=== PATIENT | female | born 1985 | race Caucasian/White ===

== ENCOUNTER 2020-07-10 06:12 | Emergency (ER) | payer MEDICAID, SELFPAY ==
[~2020-07-10] VITALS: Ht 172.7 cm; Wt 68.9 kg
[2020-07-10 06:12] VITALS: BP_SYST 133
[2020-07-10 07:04] LABS: BASOPHILS % (AUTO) 0.7 % (0.0-2.0); EOSINOPHILS # (AUTO) 0.1 K/uL (0.0-0.4); HEMOGLOBIN 14.3 g/dL (12.0-16.0); LYMPHOCYTES # (AUTO) 1.9 K/uL (1.0-5.5); LYMPHOCYTES % (AUTO) 26.2 % (20.5-51.5); MEAN CORPUSCULAR HEMOGLOBIN 30 pg (27-31); MEAN CORPUSCULAR HGB CONC 34 % (32-36); MEAN CORPUSCULAR VOLUME 89 fL (79.0-98.0); MONOCYTES # (AUTO) 0.5 K/uL (0.0-1.0); MONOCYTES % (AUTO) 6.4 % (1.7-9.3); NEUTROPHILS # (AUTO) 4.7 K/uL (1.8-7.7); NEUTROPHILS % (AUTO) 65.7 % (40.0-70.0); PLATELET COUNT (AUTO) 279 K/uL (130-430); RED BLOOD CELL COUNT(AUTO) 4.72 MIL/uL (4.2-6.2); RED CELL DISTRIBUTION WIDTH 13.8 % (9.0-15.0); WHITE BLOOD COUNT (AUTO) 7.1 K/uL (4.8-10.8)
[2020-07-10 07:05] LABS: SODIUM SERUM 146 mmol/L (136-145)
[2020-07-10 07:06] LABS: ANION GAP 14 (5-15); CALCIUM 8.6 mg/dL (8.4-11.0); CHLORIDE 110 mmol/L (98-107); CREATININE 0.63 mg/dL (0.55-1.30); GFR AFRICAN AMERICAN 137 mL/min (>90); GLUCOSE 110 mg/dL (70-99); POTASSIUM 3.2 mmol/L (3.5-5.1); UREA NITROGEN, BLOOD 5 mg/dL (8-21)
[2020-07-10 07:21] LABS: ASPARTATE AMINOTRANSFERASE 20 U/L (10-37)
[2020-07-10 07:22] LABS: ACETAMINOPHEN < 1 ug/mL (1-30); ALANINE AMINOTRANSFERASE 26 U/L (12-78); ALBUMIN 4.2 g/dL (3.4-4.8); ALCOHOL, BLOOD 210 mg/dL (<10); HCG,QUANTITATIVE 2 mIU/ML (0-6)
[2020-07-10 07:23] LABS: TOTAL BILIRUBIN 0.1 mg/dL (0.0-1.0)
[2020-07-10] MEDS ORDERED: NACL 0.9% 1,000 ML IV ONE (08:00)
[2020-07-10 11:43] VITALS: BP_SYST 130
== END 2020-07-10 11:43 ==
LOC: SED 06:12
DX: T40.422A Poisoning by tramadol, intentional self-harm, initial encounter (principal); Z88.6 Allergy status to analgesic agent; Z20.828 Contact with and (suspected) exposure to other viral communicable diseases; Y92.89 Other specified places as the place of occurrence of the external cause
CPT/HCPCS: 36415; 80053; 84702-TC; 85025; 96360; 99285; G0480; G0481; G0482; J7030

== ENCOUNTER 2023-09-23 20:23 | Emergency (ER) | payer MEDICAID ==
[~2023-09-23] VITALS: Ht 172.7 cm; Wt 59.0 kg
[2023-09-23 20:25] VITALS: BP_SYST 136; PULSE 90; RESP 16; TEMP 97.6; O2SAT 98
[2023-09-23 21:09] LABS: BASOPHILS % (AUTO) 0.6 % (0.0-2.0); EOSINOPHILS # (AUTO) 0.1 K/uL (0.0-0.4); EOSINOPHILS % (AUTO) 1.9 % (0.0-4.0); HEMATOCRIT 34.5 % (36-48); HEMOGLOBIN 11.4 g/dL (12.0-16.0); LYMPHOCYTES # (AUTO) 1.3 K/uL (1.0-5.5); LYMPHOCYTES % (AUTO) 25.7 % (20.5-51.5); MEAN CORPUSCULAR HEMOGLOBIN 27 pg (27-31); MEAN CORPUSCULAR HGB CONC 33 % (32-36); MEAN CORPUSCULAR VOLUME 82 fL (79.0-98.0); MONOCYTES # (AUTO) 0.5 K/uL (0.0-1.0); NEUTROPHILS # (AUTO) 3.1 K/uL (1.8-7.7); NEUTROPHILS % (AUTO) 61.8 % (40.0-70.0); PLATELET COUNT (AUTO) 242 K/uL (130-430); RED BLOOD CELL COUNT(AUTO) 4.19 MIL/uL (4.2-6.2); RED CELL DISTRIBUTION WIDTH 16.2 % (9.0-15.0)
[2023-09-23 21:32] LABS: ANION GAP 8 (5-15); CALCIUM 8.8 mg/dL (8.4-11.0); CARBON DIOXIDE 26 mmol/L (23-29); CHLORIDE 106 mmol/L (98-107); CREATININE 0.69 mg/dL (0.55-1.30); GFR AFRICAN AMERICAN 121 mL/min (>90); GFR NON AFRICAN-AMERICAN 100 mL/min (>90); GLUCOSE 100 mg/dL (74-106); SODIUM SERUM 140 mmol/L (136-145); UREA NITROGEN, BLOOD 7 mg/dL (8-21)
[2023-09-23 21:38] LABS: POTASSIUM 2.9 mmol/L (3.5-5.1)
[2023-09-23] MEDS ORDERED: MORPHINE 4 MG INJ. 4 MG/ML VIAL IVP ONE (23:30)
[2023-09-23] MEDS ORDERED: NITROGLYCERIN 1 INCH (GM) OINT. TP ONE (23:30)
[2023-09-23] MEDS ORDERED: POTASSIUM CHLORIDE 20 MEQ/PKT PACKET PO ONE (23:45)
[2023-09-24 01:15] LABS: PROTHROMBIN TIME 9.9 SECS (9.5-12.5)
[2023-09-24 01:32] LABS: ALANINE AMINOTRANSFERASE 23 U/L (12-78); ALBUMIN 3.4 g/dL (3.4-4.8); ASPARTATE AMINOTRANSFERASE 20 U/L (10-37); BILIRUBIN,DIRECT 0.1 mg/dL (0.0-0.3); TOTAL BILIRUBIN 0.2 mg/dL (0.0-1.0); TOTAL PROTEIN, SERUM 7.6 g/dL (6.4-8.3)
[2023-09-24] MEDS ORDERED: ONDANSETRON HCL 4 MG/2 ML VIAL IVP PRN (07:45)
[2023-09-24] MEDS ORDERED: NITROGLYCERIN 0.4 MG TAB.SUBL SL PRN (07:45)
[2023-09-24] MEDS ORDERED: HYDROcodone/ACETAMIN 5-325 MG TAB (NORCO/ VICODIN) PO PRN (07:45)
[2023-09-24 09:01] LABS: BILIRUBIN,URINE NEGATIVE (NEGATIVE); CLARITY/URINE CLEAR (CLEAR); COLOR,URINE YELLOW (YELLOW); GLUCOSE,URINE NEGATIVE (NEGATIVE); KETONES,URINE NEGATIVE (NEGATIVE); LEUKOCYTE ESTERASE ,URINE NEGATIVE (NEGATIVE); NITRITE, URINE NEGATIVE (NEGATIVE); PROTEIN URINE NEGATIVE (NEGATIVE); UROBILINOGEN,URINE 0.2 (0.2-1.0)
[2023-09-24 09:23] LABS: BARBITURATE, URINE NEGATIVE (NEG <=200); BENZODIAZEPINE, URINE NEGATIVE (NEG <=150); CANNABINOID, URINE NEGATIVE (NEG <=50); COCAINE, URINE NEGATIVE (NEG <=150); METHAMPHETAMINES SCREEN,URINE NEGATIVE (NEG <=500); OPIATE, URINE POSITIVE (NEG <=100); PHENCYCLIDINE SCREEN,URINE NEGATIVE (NEG <=25); URINE AMPHETAMINE NEGATIVE (NEG <=500); URINE METHADONE NEGATIVE (NEG <=200); URINE OXYCODONE SCREEN NEGATIVE (NEG <=100)
[2023-09-24 09:24] LABS: UR TRICYCLIC ANTIDEPRESSANTS NEGATIVE (NEG <=300)
[2023-09-24 09:36] LABS: BASOPHILS % (AUTO) 0.7 % (0.0-2.0); EOSINOPHILS # (AUTO) 0.1 K/uL (0.0-0.4); EOSINOPHILS % (AUTO) 3.7 % (0.0-4.0); HEMOGLOBIN 10.3 g/dL (12.0-16.0); LYMPHOCYTES # (AUTO) 1.8 K/uL (1.0-5.5); LYMPHOCYTES % (AUTO) 46.7 % (20.5-51.5); MEAN CORPUSCULAR HEMOGLOBIN 27 pg (27-31); MEAN CORPUSCULAR HGB CONC 32 % (32-36); MEAN CORPUSCULAR VOLUME 83 fL (79.0-98.0); MONOCYTES # (AUTO) 0.5 K/uL (0.0-1.0); MONOCYTES % (AUTO) 13.1 % (1.7-9.3); NEUTROPHILS # (AUTO) 1.4 K/uL (1.8-7.7); NEUTROPHILS % (AUTO) 35.8 % (40.0-70.0); PLATELET COUNT (AUTO) 208 K/uL (130-430); RED BLOOD CELL COUNT(AUTO) 3.84 MIL/uL (4.2-6.2); RED CELL DISTRIBUTION WIDTH 16.4 % (9.0-15.0); WHITE BLOOD COUNT (AUTO) 3.8 K/uL (4.8-10.8)
[2023-09-24 09:58] LABS: BLOOD, URINE TRACE (NEGATIVE)
[2023-09-24 10:07] LABS: CHOLESTEROL 130 mg/dL (<200); HDL CHOLESTEROL 57 mg/dL (>55); THYROID STIMULATING HORMONE 2.82 uIu/mL (0.34-4.82); TRIGLYCERIDES 51 mg/dL (30-150)
[2023-09-24 10:19] LABS: BACTERIA,URINE FEW /HPF (None Seen); RBC,URINE 0-3 /HPF (0-3); WBC,URINE NONE SEEN /HPF (0-3)
[2023-09-24 10:26] LABS: HEMOGLOBIN A1C 5.42 % (<5.7)
[2023-09-24 11:27] LABS: CALCIUM 8.6 mg/dL (8.4-11.0); CREATININE 0.74 mg/dL (0.55-1.30); POTASSIUM 3.3 mmol/L (3.5-5.1)
[2023-09-24] MEDS ORDERED: POTASSIUM CHLORIDE 20 MEQ TABLET.ER PO ONE (14:00)
[2023-09-24 17:17] VITALS: BP_SYST 123; PULSE 78; RESP 18; TEMP 98.6; O2SAT 98
== END 2023-09-24 17:18 | disposition home or self-care (01) ==
LOC: SED 20:23 → STU 09-24 06:36 → UNDOADMIN 09-24 06:36 → UNDODISIN 09-24 17:18 → STU 09-24 17:18
DX: R07.9 Chest pain, unspecified (principal); I20.9 Angina pectoris, unspecified; F17.200 Nicotine dependence, unspecified, uncomplicated; I10 Essential (primary) hypertension; Z79.899 Other long term (current) drug therapy
CPT/HCPCS: 99285; 71045; 80048 ×2; 85025 ×2; 84484 ×2; 36415; 93306; 96374; 80061; 80307; 80076; 81000; 81001; 83037; 84443; 85379; 85610; 85730; 81025; 81015; 83880; J2270; G0378